=== PATIENT | female | born 1975 | race Caucasian/White ===

== ENCOUNTER 2017-11-20 06:24 | Emergency (ER) | payer OTHER ==
[~2017-11-20] VITALS: Ht 162.6 cm; Wt 92.8 kg
[2017-11-20 07:25] VITALS: BP 175/87
[2017-11-20] MEDS ORDERED: BACTRIM,SEPT1 TABLET PO (08:15)
== END 2017-11-20 08:22 | disposition home or self-care (01) ==
LOC: EME 06:24
PROC: 0H98XZZ Drainage of Buttock Skin, External Approach (ICD-10-PCS; principal; 2017-11-20)
DX: L02.31 Cutaneous abscess of buttock (principal); F17.200 Nicotine dependence, unspecified, uncomplicated
CPT/HCPCS: 99281; 99284